=== PATIENT | female | born 1955 | race Hispanic/Latino ===

== ENCOUNTER 2018-01-10 06:49 | Day surgery (SDC) | payer BC ==
[2018-01-09 10:53] VITALS: BMI 45.1
[2018-01-10] MEDS ORDERED: Propofol 10 mg/ml Inj (20 ML) ONE ×2 (07:16→09:53)
[2018-01-10] MEDS ORDERED: ePHEDrine 50 mg/ml Inj ONE (07:17)
[2018-01-10] MEDS ORDERED: Succinylcholine 200 mg/10 ml Inj IV ONE (07:17)
[2018-01-10] MEDS ORDERED: Midazolam 2 MG/2 ML VIAL ONE ×2 (07:17→09:54)
[2018-01-10] MEDS ORDERED: Phenylephrine 10 mg/ml Inj ONE (07:17)
[2018-01-10] MEDS ORDERED: Sodium Chloride 0.9% 10 ML IV ONE (07:17)
[2018-01-10] MEDS ORDERED: Lactated Ringer's 1,000 ML IV ONE (08:00)
[2018-01-10] MEDS ORDERED: cefOXitin IV 1 gm in Dextrose 0 GM/0 ML BAG IVPB ONE (09:40)
--- NOTE | 2018-01-10 09:54 | CP.PCM.HP ---
History of Present Illness - History of Present Illness History of Present Illness: 62yo with episode of PMB and irregularly thickened endometrium on pelvic ultrasound. Discussed with patient the R/B/A of hysteroscopy, D&C and all patient questions answered. Pt consented for procedure Present on Admission - Present on Admission Any Indicators Present on Admission: No History of DVT/PE: No History of Uncontrolled Diabetes: No Urinary Catheter: No Decubitus Ulcer Present: No Past Patient History - Past Medical History & Family History Past Medical History?: Yes - Past Social History Smoking Status: Never Smoked - CARDIAC Hx Cardiac Disorders: Yes Hx Hypertension: Yes Other/Comment: slight leaky valve. morbid obesity - PULMONARY Hx Bronchitis: Yes - NEUROLOGICAL Hx Neurological Disorder: No - HEENT Hx HEENT Problems: No - RENAL Hx Chronic Kidney Disease: No - ENDOCRINE/METABOLIC Hx Endocrine Disorders: No Other/Comment: borderline diabetes/ no meds - HEMATOLOGICAL/ONCOLOGICAL Hx Blood Disorders: No Hx Blood Transfusions: No - INTEGUMENTARY Hx Dermatological Problems: No - MUSCULOSKELETAL/RHEUMATOLOGICAL Hx Musculoskeletal Disorders: Yes (KNEE PAIN) Hx Osteoarthritis: Yes - GASTROINTESTINAL Hx Gastrointestinal Disorders: No - GENITOURINARY/GYNECOLOGICAL Hx Postmenopausal Bleeding: Yes Hx Reproductive Disorders: Yes ("TIPPED" UTERUS) - PSYCHIATRIC Hx Psychophysiologic Disorder: No - SURGICAL HISTORY Hx Surgeries: Yes (OVARIAN CYSTECTOMY EXC.FALLOPIAN TUBE) Hx Dilation and Curettage: Yes (x2) Hx Joint Replacement: Yes (BILATERAL KNEE) - ANESTHESIA Hx Anesthesia: Yes Hx Anesthesia Reactions: No Hx Malignant Hyperthermia: No Has any member of the family had a problem w/ anesthesia?: No Meds Allergies/Adverse Reactions: Allergies Allergy/AdvReac Type Severity Reaction Status Date / Time amoxicillin [From Augmentin] Allergy RASH Verified 01/09/18 10:54 clavulanic acid Allergy RASH Verified 01/09/18 10:54 [From Augmentin] Physical Exam - Constitutional Appears: Well, No Acute Distress - Head Exam Head Exam: NORMAL INSPECTION - Eye Exam Eye Exam: Normal appearance, PERRL - ENT Exam ENT Exam: Mucous Membranes Moist - Neck Exam Neck exam: Positive for: Normal Inspection - Respiratory Exam Respiratory Exam: Clear to Auscultation Bilateral - Cardiovascular Exam Cardiovascular Exam: REGULAR RHYTHM - GI/Abdominal Exam GI & Abdominal Exam: Soft. absent: Distended, Tenderness - Extremities Exam Extremities exam: Positive for: normal inspection. Negative for: calf tenderness Results - Vital Signs Recent Vital Signs: Last Vital Signs Temp 98.6 F 01/10/18 08:22 Pulse 93 H 01/10/18 08:22 Resp 20 01/10/18 08:22 BP 156/72 H 01/10/18 08:22 Pulse Ox 95 01/10/18 08:22 - Imaging and Cardiology US - abdomen Status: Report reviewed by me Assessment & Plan - Assessment and Plan (Free Text) Assessment: PMB, thickened endometrium Plan: Hysteroscopy, D&C - Date & Time Date: 01/10/18 Time: 09:54
[2018-01-10] MEDS ORDERED: Oxycodone/Acetaminophen 5/325 mg Tab PO PRN (11:00)
--- NOTE | 2018-01-10 11:08 | PCM.SURG1 ---
Surgeon's Initial Post Op Note - Surgeon's Notes Surgeon: Ronald Lead Shop Operator: N/A Type of Anesthesia: General Endo Anesthesia Administered By: Patience Pre-Operative Diagnosis: Postmenopausal bleeding, thickened endometrium Operative Findings: Endometrial polyp ~1-2cm, otherwise normal appearing anatomy Post-Operative Diagnosis: Same + endometrial polyp Operation Performed: Hysteroscopy, endometrial polypectomy Specimen/Specimens Removed: endometrial polyp Estimated Blood Loss: EBL {In ML}: 0 Blood Products Given: N/A Drains Used: No Drains Post-Op Condition: Good Date of Surgery/Procedure: 01/10/18 Time of Surgery/Procedure: 11:05
--- NOTE | 2018-01-10 11:10 | CP.PCM.DIS ---
Provider - Provider Attending physician: Ovidio Cardenas MD Primary care physician: Davis Mendieta MD Time Spent in preparation of Discharge (in minutes): 10 Diagnosis - Discharge Diagnosis (1) Postmenopausal bleeding Status: Acute (2) Endometrial polyp Status: Acute (3) Thickened endometrium Status: Acute Hospital Course - Date & Time of H&P Date of H&P: 01/10/18 Time of H&P: 11:09 Discharge Exam - Head Exam Head Exam: NORMAL INSPECTION Discharge Plan - Follow Up Plan Condition: GOOD Disposition: HOME/ ROUTINE Referrals: Davis Mendieta MD [Primary Care Provider] -
[2018-01-10] MEDS ORDERED: Lactated Ringer's 1,000 ML IV SCH (11:15)
[2018-01-10] MEDS ORDERED: DiphenhydrAMINE 12.5 mg/5 ml LIQ UD (5 ml) PO ONE (11:29)
[2018-01-10] MEDS ORDERED: Lactated Ringer's 500 ML IV ONE (11:55)
[2018-01-10 12:28] VITALS: RESP 18
[2018-01-10 13:23] VITALS: BP 156/66; PULSE 92; TEMP 98.4; O2SAT 96
--- NOTE | 2018-01-11 00:31 | OP ---
PROCEDURE DATE: 01/10/2018 PREOPERATIVE DIAGNOSES: Postmenopausal bleeding and thickened endometrium. POSTOPERATIVE DIAGNOSES: Postmenopausal bleeding and thickened endometrium and endometrial polyp. OPERATION PERFORMED: Hysteroscopy, endometrial polypectomy. COMPLICATIONS: None. SURGEON: Ovidio Cardenas MD TYPE OF ANESTHESIA: General. ANESTHESIOLOGIST: Paco Morin MD OPERATIVE FINDINGS: Endometrial polyp of approximately 1 to 2 cm; otherwise, normal-appearing anatomy. ESTIMATED BLOOD LOSS: Minimal. FLUIDS: 200 mL lactated Ringer's. COMPLICATIONS: None. DESCRIPTION OF PROCEDURE: The patient was taken to the operating room where general anesthesia was found to be adequate. The patient was prepped and draped in normal sterile fashion in the dorsal lithotomy position. A weighted speculum was placed at the posterior aspect of the vagina. A Thakkar retractor was placed at the anterior surface of the vagina. The cervix was grasped at the anterior surface with a single-tooth tenaculum. The cervix was dilated with a [place] dilator to a size of 20-[place]. The hysteroscope was placed through the cervix into the uterine cavity. The uterine cavity was insufflated with fluid, and the above findings noted. The MyoSure device was placed through the hysteroscope into the uterine cavity. The endometrial polyp was removed with MyoSure device under direct visualization. After removal of polyp, area was found to be hemostatic. All instruments were removed from the patient. Both the tenaculum site and cervical os was found to be hemostatic following the procedure. All sponge, lap count, and needle counts were correct x2. There were no complications. The patient was taken to the recovery room in awake and stable condition. Ovidio Cardenas MD
== END 2018-01-10 13:30 | disposition home or self-care (01) ==
LOC: H.OPSURG 06:49
PROVIDERS: ATTEND Obstetrics & Gynecology
DX: N95.0 Postmenopausal bleeding (principal); I10 Essential (primary) hypertension; R73.03 Prediabetes; N84.0 Polyp of corpus uteri; Z88.0 Allergy status to penicillin; E66.01 Morbid (severe) obesity due to excess calories
CPT/HCPCS: 58558; 88305; J2001; J2250; J2704; J3010; J7030; J7120